=== PATIENT | female | born 1975 | race Hispanic/Latino ===

== ENCOUNTER 2018-05-02 09:22 | Observation (INO) | payer OTHER ==
[2018-03-17 15:32] LABS: BASOPHILS % 0.4 % (0.0-1.0); EOSINOPHILS # (AUTO) 0.3 (0.0-0.4); EOSINOPHILS % 3.3 % (0.0-6.0); HEMATOCRIT 35.7 % (34.2-44.1); HEMOGLOBIN 11.2 g/dL (12.0-16.0); LYMPHOCYTES # (AUTO) 1.8 (1.0-3.2); LYMPHOCYTES % 22.2 % (18.0-39.1); MEAN CORPUSCULAR HEMOGLOBIN 24.6 pg (28-32); MEAN CORPUSCULAR HGB CONC 31.4 g/dL (31-35); MEAN CORPUSCULAR VOLUME 78.5 fL (81-99); MONOCYTES # (AUTO) 0.5 (0.2-0.8); NEUTROPHILS # (AUTO) 5.5 (2.1-6.9); NEUTROPHILS % 67.9 % (38.7-80.0); PLATELET COUNT 288 x10e3/uL (140-360); RED BLOOD COUNT 4.55 x10e6/uL (3.6-5.1); RED CELL DISTRIBUTION WIDTH 15.3 % (11.7-14.4)
[2018-03-17 15:52] LABS: ALANINE AMINOTRANSFERASE 32 IU/L (0-55); ALBUMIN/GLOBULIN RATIO 1.1 (0.8-2.0); ALKALINE PHOSPHATASE 88 IU/L (40-150); ANION GAP 12.7 mmol/L (8-16); BLOOD UREA NITROGEN 10 mg/dL (7-26); BUN/CREATININE RATIO 15 (6-25); CALCIUM 9.3 mg/dL (8.4-10.2); CARBON DIOXIDE 24 mmol/L (22-29); CHLORIDE 106 mmol/L (98-107); CREATININE, SERUM 0.65 mg/dL (0.57-1.11); EST GLOMERULAR FILTRATION RATE > 60 ML/MIN (60-); GLUCOSE 81 mg/dL (74-118); POTASSIUM 3.7 mmol/L (3.5-5.1); SODIUM 139 mmol/L (136-145)
[2018-05-01 10:00] LABS: BASOPHILS % 0.5 % (0.0-1.0); EOSINOPHILS # (AUTO) 0.3 (0.0-0.4); EOSINOPHILS % 4.1 % (0.0-6.0); HEMATOCRIT 36.5 % (34.2-44.1); HEMOGLOBIN 11.5 g/dL (12.0-16.0); LYMPHOCYTES # (AUTO) 1.5 (1.0-3.2); LYMPHOCYTES % 19.2 % (18.0-39.1); MEAN CORPUSCULAR HEMOGLOBIN 24.6 pg (28-32); MEAN CORPUSCULAR HGB CONC 31.5 g/dL (31-35); MONOCYTES # (AUTO) 0.5 (0.2-0.8); MONOCYTES % 6.5 % (4.4-11.3); NEUTROPHILS # (AUTO) 5.4 (2.1-6.9); NEUTROPHILS % 68.3 % (38.7-80.0); PLATELET COUNT 293 x10e3/uL (140-360); RED BLOOD COUNT 4.68 x10e6/uL (3.6-5.1); RED CELL DISTRIBUTION WIDTH 15.3 % (11.7-14.4)
[2018-05-01 10:08] LABS: ALANINE AMINOTRANSFERASE 27 IU/L (0-55); ALBUMIN 3.5 g/dL (3.5-5.0); ALBUMIN/GLOBULIN RATIO 0.9 (0.8-2.0); ALKALINE PHOSPHATASE 88 IU/L (40-150); ANION GAP 12.2 mmol/L (8-16); BLOOD UREA NITROGEN 10 mg/dL (7-26); BUN/CREATININE RATIO 16 (6-25); CALCIUM 9.1 mg/dL (8.4-10.2); CARBON DIOXIDE 24 mmol/L (22-29); CHLORIDE 107 mmol/L (98-107); CREATININE, SERUM 0.64 mg/dL (0.57-1.11); EST GLOMERULAR FILTRATION RATE > 60 ML/MIN (60-); GLUCOSE 92 mg/dL (74-118); POTASSIUM 4.2 mmol/L (3.5-5.1); SODIUM 139 mmol/L (136-145)
[2018-05-02] MEDS ORDERED: CEFAZOLIN SOD 2 GM/D5W 50ML 50 ML IV ONE (09:37)
[2018-05-02] MEDS ORDERED: ESTROGENS CONJUGATED VAGINAL CR 45 GM TUBE PV ONE (11:58)
[2018-05-02] MEDS ORDERED: BUPIVACAINE 0.25%/EPI 30ML SDV INJ ONE (11:58)
[2018-05-02] MEDS ORDERED: ONDANSETRON HCL INJ 2 MG/ML VIAL ONE (12:53)
[2018-05-02] MEDS ORDERED: LIDOCAINE HCL 2% LOCAL INJ 5 ML SDV VIAL INJ ONE (12:53)
[2018-05-02] MEDS ORDERED: GLYCOPYRROLATE INJ 1MG/ 5 ML SYR ONE (12:53)
[2018-05-02] MEDS ORDERED: SEVOFLURANE INHAL SOLN 250 ML PEN BTL ONE (12:53)
[2018-05-02] MEDS ORDERED: NEOSTIGMINE 5 MG/5ML SYR ONE (12:53)
[2018-05-02] MEDS ORDERED: PROPOFOL IV EMULSION 10 MG/ML 20 ML VIAL ONE (12:53)
[2018-05-02] MEDS ORDERED: ROCURONIUM BROMIDE 10 MG/ML 5ML VIAL ONE (12:53)
[2018-05-02] MEDS ORDERED: DEXAMETHASONE SOD PHOS INJ 4 MG/ML VIAL ONE (12:53)
[2018-05-02] MEDS ORDERED: FENTANYL CITRATE/PF 100MCG/2 ML INJ ONE ×2 (14:05→18:22)
[2018-05-02] MEDS ORDERED: MIDAZOLAM HCL 2 MG/2 ML VIAL ONE (14:05)
[2018-05-02] MEDS: LACTATED RINGER'S 1,000 ML IV SCH (17:39)
[2018-05-02] MEDS ORDERED: PROMETHAZINE HCL (IM) 25 MG/ML VIAL IV PRN (17:45)
[2018-05-02] MEDS ORDERED: HYDROCODONE/APAP 10MG-325MG TAB PO PRN (17:45)
[2018-05-02] MEDS ORDERED: DOCUSATE SODIUM 100 MG CAP PO PRN (17:45)
[2018-05-02] MEDS ORDERED: HYDROMORPHONE 1MG/1ML INJ IV PRN (17:45)
[2018-05-02] MEDS ORDERED: DIPHENHYDRAMINE HCL 25 MG CAP PO PRN (17:45)
[2018-05-02] MEDS ORDERED: MEPERIDINE HCL INJ 50 MG/ML INJ ONE (17:59)
[2018-05-02] MEDS ORDERED: PROMETHAZINE 12.5MG/ NACL 0.9% 50 ML IV PRN (18:00)
[2018-05-02] MEDS ORDERED: KETOROLAC TROMETHAMINE 30 MG/ML VIAL ONE (18:09)
[2018-05-02 20:00] VITALS: BP 97/68
[2018-05-02] MEDS: KETOROLAC TROMETHAMINE 30 MG/ML VIAL IV SCH (20:00)
[2018-05-02] MEDS ORDERED: CEFAZOLIN SOD 1 GM/D5W 50ML 50 ML IV SCH (22:00)
[2018-05-02] MEDS: CEFAZOLIN SOD 1 GM VIAL IV SCH (22:12)
[2018-05-02] MEDS: ONDANSETRON HCL INJ 2 MG/ML VIAL IV PRN (22:23)
[2018-05-02 23:31] VITALS: BP 97/68
[2018-05-02 23:33] VITALS: BP 97/68
[2018-05-02 23:36] VITALS: BP 97/68
[2018-05-03] VITALS: BP 92/55
[2018-05-03] MEDS: SIMETHICONE 80 MG CHEW PO PRN ×2 (00:39→11:42)
[2018-05-03] MEDS: KETOROLAC TROMETHAMINE 30 MG/ML VIAL IV SCH ×4 (00:39→07:16)
[2018-05-03] MEDS: LACTATED RINGER'S 1,000 ML IV SCH (03:33)
[2018-05-03 04:00] VITALS: BP 89/52
[2018-05-03 05:21] VITALS: BP 89/52
[2018-05-03 05:25] LABS: BASOPHILS % 0.2 % (0.0-1.0); HEMATOCRIT 28.4 % (34.2-44.1); HEMOGLOBIN 9.1 g/dL (12.0-16.0); LYMPHOCYTES # (AUTO) 0.7 (1.0-3.2); LYMPHOCYTES % 4.3 % (18.0-39.1); MEAN CORPUSCULAR HEMOGLOBIN 24.7 pg (28-32); MEAN CORPUSCULAR VOLUME 77.2 fL (81-99); MONOCYTES # (AUTO) 0.6 (0.2-0.8); MONOCYTES % 3.6 % (4.4-11.3); NEUTROPHILS # (AUTO) 15.7 (2.1-6.9); NEUTROPHILS % 91.1 % (38.7-80.0); PLATELET COUNT 247 x10e3/uL (140-360); RED BLOOD COUNT 3.68 x10e6/uL (3.6-5.1); RED CELL DISTRIBUTION WIDTH 14.7 % (11.7-14.4)
[2018-05-03 05:49] LABS: BLOOD UREA NITROGEN 8 mg/dL (7-26); BUN/CREATININE RATIO 13 (6-25); CALCIUM 8.3 mg/dL (8.4-10.2); CARBON DIOXIDE 22 mmol/L (22-29); CHLORIDE 107 mmol/L (98-107); CREATININE, SERUM 0.64 mg/dL (0.57-1.11); EST GLOMERULAR FILTRATION RATE > 60 ML/MIN (60-); GLUCOSE 119 mg/dL (74-118); SODIUM 138 mmol/L (136-145)
[2018-05-03] MEDS: CEFAZOLIN SOD 1 GM VIAL IV SCH (05:51)
[2018-05-03] MEDS: ONDANSETRON HCL INJ 2 MG/ML VIAL IV PRN ×2 (05:52→11:42)
[2018-05-03 07:49] VITALS: BP 99/52
[2018-05-03 08:24] VITALS: BP 99/52
[2018-05-03] MEDS ORDERED: HYDROCODONE/APAP 5MG-325MG TAB PO PRN ×2 (08:30)
[2018-05-03] MEDS ORDERED: Hydrocodone/Apap 5MG-325MG PO (08:36)
[2018-05-03] MEDS ORDERED: COLACE100 M1 PO (08:36)
[2018-05-03] MEDS ORDERED: Ibuprofen PO (08:36)
[2018-05-03] MEDS ORDERED: HYDROMORPHONE 1MG/1ML INJ IV STA (08:49)
[2018-05-03 11:23] VITALS: BP 96/55
[2018-05-03] MEDS ORDERED: IBUPROFEN 600 MG TAB PO SCH (12:00)
--- NOTE | 2018-05-27 17:04 | Operative Report ---
DATE OF PROCEDURE: May 02, 2018 ADVERTISING DISPLAY ROTATOR: Bernie Murray PREOPERATIVE DIAGNOSES 1. Abnormal uterine bleeding. 2. Fibroid uterus. POSTOPERATIVE DIAGNOSES 1. Abnormal uterine bleeding. 2. Fibroid uterus. PROCEDURE PERFORMED: Laparoscopic-assisted vaginal hysterectomy with bilateral salpingectomy. ANESTHESIA: General. ESTIMATED BLOOD LOSS: 300 mL. COMPLICATIONS: None. FINDINGS: An approximately 12-14 weeks size fibroid uterus. Normal adnexa bilaterally. Otherwise, normal abdominal anatomy. SPECIMENS: Uterus with cervix and fallopian tubes. 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 PROCEDURE NOTE: Prior to the operation, the risks, benefits and alternatives were discussed, and the consent was reconciled. The patient was brought to the operating room and properly identified. She was placed on the operating table in the dorsal supine position, and general endotracheal anesthesia was induced by the anesthesiologist. The patient was then repositioned to the dorsal lithotomy position in adjustable Nathanael stirrups, and prepped and draped in the typical sterile fashion for a laparoscopic-assisted vaginal hysterectomy. A time out was then performed. A Clark catheter was placed within the patient's bladder. A bivalve speculum was placed within the vagina with visualization of the cervix, which was grasped along the anterior lip using a single-toothed tenaculum. This facilitated placement of a V-Care uterine manipulator followed by removal of the single-tooth and speculum. Attention was then turned to the laparoscopic portion of the procedure. The infraumbilical skin was infiltrated with 0.25% Marcaine with epinephrine and incised using a scalpel to create a 5 mm infraumbilical incision. A 5-mm trocar was then placed under direct visualization with the laparoscope. The abdomen was insufflated with CO2 gas to a maximum pressure of 15 mmHg. The abdomen and pelvis were inspected with the above-noted findings. Secondary trocars were then placed in the left and right lower quadrants of the patient's abdomen. Both were 5-mm trocars and were both placed under direct visualization with the laparoscope. After thorough inspection of the pelvis, both ureters were visualized and peristalsis noted. Their course was well away from the planned procedure. The LigaSure was then used to coagulate and divide the right round ligament. The right fallopian tube was then grasped with a blunt grasper, and the LigaSure device was used to incise along the mesosalpinx coagulating and cutting serially along the base of the fallopian tube to the level of the uterus. The incision was then continued with the LigaSure device along the broad ligament, which was undermined hence dividing the vesicouterine peritoneal reflection laterally to medially to the left midline. The posterior leaf of the broad ligament was also coagulated and divided to the level of the utero-ovarian ligament. This was also coagulated and divided with good hemostasis. Attention was turned to the left round ligament, which was grasped with the LigaSure device, coagulated and cut. The left fallopian tube was then grasped with a blunt retractor, and the LigaSure device was used to coagulate and cut sequentially along the mesosalpinx the fallopian tube from the adnexa. This was continued to the level of the uterus. The anterior leaf of the broad ligament was then undermined dividing the vesicouterine peritoneal reflection laterally to medially. This incision was united with the incision from the contralateral side. The posterior leaf of the broad ligament was then coagulated and divided to the level of the utero-ovarian ligament. Good hemostasis was noted. Sharp and blunt dissection were then used to mobilize the bladder off of the lower uterine segment, the cervix and the upper vagina. Both uterine vessels were skeletonized, coagulated and divided with the LigaSure device down to the level of the internal cervical os. All pedicles were inspected and found to be hemostatic. The monopolar end of the LigaSure device was then used to create the anterior colpotomy incision. The pneumoperitoneum was evacuated, and the patient repositioned to the high lithotomy position for the vaginal portion of the procedure. A weighted posterior retractor was placed into the posterior fornix, and the uterine manipulator was removed. Two single-toothed tenaculums were used to grasp the cervix. The cervix was incised circumferentially with the scalpel, and the posterior cul-de-sac was easily entered using Metzenbaum scissors. Two right-angled retractors were used to retract the bladder anteriorly and the ureters laterally. The right uterosacral ligament was then identified, clamped with the curved Zeppelin clamp and divided. This was ligated with 0 Vicryl suture. In a like fashion, the left uterosacral ligament was clamped, divided and suture ligated with 0 Vicryl. The left cardinal ligament was then sequentially coagulated and cut with the LigaSure device. This was then repeated on the right cardinal ligament. This allowed for delivery of the uterus and fallopian tubes through the vagina. Our gloves were changed. The patient was repositioned. The abdomen and pelvis were copiously irrigated with normal saline. All pedicles were inspected and found to be hemostatic. The vaginal cuff was copiously irrigated with normal saline, and then closed with a running 0 Vicryl suture. The vaginal cuff was inspected and found to be hemostatic. Vaginal packing soaked in Premarin cream was placed within the vagina. The patient was returned to the low lithotomy position, and the pneumoperitoneum was re-established. The abdomen and pelvis were copiously irrigated with normal saline. All sites were found to be hemostatic. All 5 mm laparoscopy ports were then removed under direct visualization with the laparoscope. The abdomen desufflated. All incisions were closed with 3-0 Vicryl in a subcuticular fashion and covered with Dermabond. The patient was awakened from anesthesia, extubated in the OR. She was authorized to be taken to the PACU in good condition. Job#: [id number] YRN
== END 2018-05-03 14:25 | disposition home or self-care (01) ==
LOC: OR 09:22 → IMCU 18:25
PROVIDERS: ADMIT Obstetrics & Gynecology Obstetrics; ATTEND Obstetrics & Gynecology Obstetrics
DX: D25.9 Leiomyoma of uterus, unspecified (principal); N93.8 Other specified abnormal uterine and vaginal bleeding; N72 Inflammatory disease of cervix uteri; N87.9 Dysplasia of cervix uteri, unspecified
CPT/HCPCS: 36415 ×4; 58552; 76937; 80048; 80053 ×2; 82948; 84702 ×2; 85025 ×3; 86850; 86900; 88307; G0378 ×2; J0690 ×2; J1100; J1170; J1885 ×2; J2001; J2175; J2250; J2405 ×2; J3490; J7120